=== PATIENT | male | born 1955 | race Caucasian/White ===

== ENCOUNTER → 2019-04-15 | Outpatient (CLI) | payer BC ==
[2016-06-19 10:30] VITALS: BP 126/69
[~2019-04-15] MED LIST: ASPI-630 PO; CYCL10TA2 PO; DOCU-109 PO; HYDR-2765 PO; MULT-245 PO; PRED5SOL7 PO
--- NOTE | 2019-04-17 09:00 | SLEEP ---
DATE OF STUDY: 04/15/2019 HOME POLYSOMNOGRAM REPORT OBJECTIVE: The patient is a 63-year-old male with snoring, daytime somnolence, morning headaches, and middle insomnia. [place] sleep score 19. INTERPRETATION: There are a total of 89 respiratory events, mostly obstructive in nature, for an apnea-hypopnea index of 10.8 events per hour of sleep. The minimum oxygen saturation is 77%. The minimum heart rate is 43 beats per minute and the maximum was 87 beats per minute with a mean heart rate of 60.5 beats per minute. IMPRESSION: Abnormal home sleep study showing obstructive sleep apnea and hypopnea. RECOMMENDATIONS: The patient should return to the lab for a CPAP titration study or alternatively could be established on a variable CPAP machine self-titrating. He should also pursue weight loss and avoid sedatives and alcohol. Thank you for letting us help with the patient's care. WENDIE VIGIL MD DR: TATY/cheryl JOB#: [id number] / [id number] GUANAKITO Naylor MD, LEANNE MD
== END | disposition home or self-care (01) ==
LOC: RT 15:46
PROVIDERS: ATTEND Internal Medicine Cardiovascular Disease
DX: G47.33 Obstructive sleep apnea (adult) (pediatric) (principal)
CPT/HCPCS: G0399